=== PATIENT | male | born 1990 | race Hispanic/Latino ===

== ENCOUNTER 2023-08-13 09:49 | Emergency (ER) | payer OTHER, SELFPAY ==
[2023-08-13 09:55] VITALS: BP 135/82; PULSE 88; RESP 14; TEMP 37.1; O2SAT 99; BMI 27.2
[2023-08-13 10:55] LABS: Influenza A - CEPHEID Flu A NEGATIVE (NEGATIVE); Influenza B - CEPHEID Flu B NEGATIVE (NEGATIVE); Respiratory Syncytial Virus Negative (Negative)
[2023-08-13 10:56] LABS: COVID-19 CEPHEID 4-PLEX PCR POSITIVE (Negative)
[2023-08-13 11:42] VITALS: BP 120/79; PULSE 92; RESP 16; TEMP 37.2; O2SAT 97
--- NOTE | 2023-08-13 11:47 | DI.CT.S_ITS ---
PROCEDURE: CT ABDOMEN PELVIS W CON INDICATIONS: LUQ, LLQ pain TECHNIQUE: After the administration of intravenous contrast, axial sections acquired from the lung bases to the pubic symphysis. Coronal and sagittal reformats were performed. For radiation dose reduction, the following was used: automated exposure control, adjustment of mA and/or kV according to patient size. COMPARISON: None. FINDINGS: Image quality: Diagnostic. Lower Chest: No significant findings. ABDOMEN: Liver: No solid mass. Gallbladder: No radiopaque gallstones or wall thickening. Biliary ducts: No biliary dilation. Pancreas: No ductal dilation. Spleen: Size is within normal limits. Adrenal Glands: No adrenal nodules. Kidneys and Ureters: No hydronephrosis. No solid mass. No complex renal cystic lesion which requires follow up. Symmetric enhancement. Stomach and Bowel: Normal colonic caliber, without significant wall thickening. Appendectomy. No significant diverticular disease. Peritoneum: No abnormal intraperitoneal fluid. No free air. Ventral Wall: No hernia. Abdominal Nodes: No retroperitoneal or mesenteric adenopathy by size criteria. Vessels: Aorta and inferior vena cava are normal in size. PELVIS: Pelvic Organs: Unremarkable. Bladder: Unremarkable. Pelvic Nodes: No enlarged lymph nodes. Miscellaneous: No inguinal hernias are seen. Bones: No aggressive osseous abnormality. IMPRESSION: No findings to explain the patient's left-sided pain. No diverticular disease or nephrolithiasis. Dictated by: Robe Busch M.D. on 08/13/2023 at 12:44 Approved by: Robe Busch M.D. on 08/13/2023 at 12:47
[2023-08-13 12:00] LABS: Add Manual Diff / Slide Review NO; Basophils Absolute Auto 0 /uL (0-100); Basophils Percent Auto 0.3 % (0-2); Eosinophils Absolute Auto 0 /uL (0-450); Hematocrit 50.2 % (41-53); Hemoglobin 17.2 g/dL (13.5-17.5); Lymphocytes Absolute Auto 500 /uL (1100-4500); Lymphocytes Percent Auto 3.8 % (25-40); Mean Corpuscular HGB Conc 34.3 % (30-36); Mean Corpuscular Hemoglobin 32.2 PG (26-34); Mean Corpuscular Volume 93.8 fL (80-100); Monocytes Absolute Auto 500 /uL (0-900); Monocytes Percent Auto 3.6 % (3-14); Neutrophils Absolute Auto 12000 /uL (1500-7000); Neutrophils Percent Auto 92.3 % (50-75); Platelet Count 225 X10^3/uL (150-400); Red Blood Cell Count 5.35 X10^6/uL (4.5-5.9); Red Cell Distribution Width 13.4 % (11.6-14.8); White Blood Cell Count 12.9 X10^3/uL (4.5-11.0)
[2023-08-13] MEDS: SODIUM CHLORIDE 0.9% 1,000 ML 1000 ML IV (12:00)
[2023-08-13 12:14] LABS: Alanine Aminotransferase 34 IU/L (<50); Albumin 4.7 g/dL (3.5-5.0); Albumin Globulin Ratio 1.3 (1.0-2.8); Alkaline Phosphatase 60 U/L (38-126); Aspartate Aminotransferase 29 IU/L (17-59); BUN Creatinine Ratio 17.8 (6-22); Bilirubin Total 1.2 mg/dL (0.2-1.3); Blood Urea Nitrogen 16 mg/dL (9-20); Calcium 9.3 mg/dL (8.4-10.2); Carbon Dioxide 27 mmol/L (22-32); Chloride 96 mmol/L (98-107); Estimated Glomerular Filt Rate > 60 mL/min (>60); Globulin 3.6 g/dL (1.7-4.1); Glucose 105 mg/dL (70-100); HEMOLYSIS < 15 (0-50); Lipase 117 U/L (23-300); Potassium 3.5 mmol/L (3.4-5.1); Sodium 135 mmol/L (137-145); Total Protein 8.3 g/dL (6.3-8.2)
[2023-08-13 12:23] LABS: Bacteria Urine Occasional (0-1); RBC Urine None Seen (0-5/HPF); Squamous Epithelial Cell Urine None Seen (0-5/HPF); WBC Urine 0-1/HPF (0-5/HPF)
[2023-08-13 12:24] LABS: Culture Indicated Urine Cult Not Indicated
--- NOTE | 2023-08-13 12:58 | ED.NAVMDI ---
HPI - Nausea/Vomiting/Diarrhea <Akin Monson PA-C - Last Filed: 08/13/23 13:06> General Chief complaint: Nausea/Vomiting/Diarrhea Stated complaint: 8pm vomitting 14/15 times so far/ pain in left sabas Time Seen by Provider: 08/13/23 11:24 Source: patient Mode of arrival: Ambulatory History of Present Illness HPI Narrative: 33-year-old male with no reported past medical history presents to the ED with 2 days of nausea, vomiting, diarrhea. Patient states that he was exposed to several sick contacts, some of whom had a stomach flu. Patient also recently travel back from visiting family in [place]. Patient states that his sister and grandmother in [place] were sick. Patient states that he started feeling sick yesterday, endorses sore throat, chills, myalgias, nausea, vomiting, diarrhea. Patient states that he started vomiting after dinner last night, has vomited 14 or 15 times since then. Patient also states that he has left-sided abdominal pain. Patient states that he started having diarrhea this morning. Denies hematochezia, melena. Patient was seen at the walk-in clinic at [facility], given a dose of Zofran and sent to the ED for further evaluation. In the ED, patient states that his nausea is well controlled the Zofran, however he continues to have abdominal pain. Related Data Previous Rx's Medication Instructions Recorded ondansetron 4 mg disintegrating 4 mg PO Q8H PRN nausea and 08/13/23 tablet vomiting #14 tabs Allergies Allergy/AdvReac Type Severity Reaction Status Date / Time No Known Drug Allergies Allergy Verified 08/13/23 09:55 Review of Systems <Akin Monson PA-C - Last Filed: 08/13/23 13:06> Constitutional Constitutional: Reports body ache(s), Reports chills, Denies fatigue, Denies fever(s), Denies frequent falls, Denies lethargy and Denies weakness Eyes Eyes: Denies change in vision, Denies eye discharge, Denies irritation and Denies loss of vision ENT Ears, Nose, Mouth, and Throat: Denies change in voice, Denies dizziness, Denies neck pain, Reports sore throat and Denies throat swelling Cardiovascular Cardiovascular: Denies chest pain, Denies irregular heart rhythm, Denies lightheadedness, Denies palpitations, Denies dyspnea, Denies dyspnea on exertion and Denies orthopnea Respiratory Respiratory: Denies cough, Denies dyspnea, Denies dyspnea on exertion and Denies wheezing Gastrointestinal Gastrointestinal: Denies abdominal pain, Denies change in bowel habits, Reports diarrhea, Reports nausea and Reports vomiting Musculoskeletal Musculoskeletal: Denies neck pain and Denies numbness Integumentary/Breasts Skin/Breast: Denies pruritus, Denies erythema, Denies rash and Denies wounds Neurologic Neurologic: Denies behavioral changes, Denies confusion, Denies dizziness, Denies frequent falls, Denies loss of vision, Denies numbness and Denies weakness Psychiatric Psychiatric: Denies anxiety, Denies behavioral changes, Denies confusion, Denies depression, Denies homicidal ideation and Denies suicidal ideation Endocrine Endocrine: Denies fatigue, Denies flushing and Denies palpitations Hematologic/Lymphatic Hematologic/Lymphatic: Denies easy bruising Allergic/Immunologic Allergic/Immunologic: Denies urticaria, Denies throat swelling and Denies wheezing Patient History <Akin Monson PA-C - Last Filed: 08/13/23 13:06> Social History Smoking Status: Unknown if ever smoked Smoking Status: Unknown if ever smoked alcohol intake frequency: holidays/special occasions only Substance Use Type: does not use Exam <Akin Monson PA-C - Last Filed: 08/13/23 13:06> Narrative Exam Narrative: Const General:?cooperative, healthy appearing and comfortable [facility] Head:?normal to inspection Ears:?hearing grossly normal bilaterally Nose:?external nose normal Face and sinus:?normal facial exam and sinuses nontender Mouth:?oral mucosae normal Throat:?posterior oropharynx normal Eyes General:?appearance normal, both eyes and all related structures Neck Neck:?normal visual inspection and no lymphadenopathy noted Resp Effort & Inspection:?normal respiratory effort Auscultation:?clear to auscultation bilaterally Cardio Rate:?regular rate Rhythm:?regular rhythm GI Abdomen is soft, nondistended. There is tenderness to palpation of the left upper quadrant and left lower quadrant. There is no CVA tenderness. Neuro General:?patient alert, patient awake and patient oriented x3 Initial Vital Signs Initial Vital Signs: Vital Signs Temperature 98.7 F 08/13/23 09:55 Pulse Rate 88 08/13/23 09:55 Respiratory Rate 14 08/13/23 09:55 Blood Pressure 135/82 08/13/23 09:55 Pulse Oximetry 99 08/13/23 09:55 Oxygen Delivery Method Room Air 08/13/23 09:55 <Selvin Dailey MD - Last Filed: 08/13/23 18:39> Initial Vital Signs Initial Vital Signs: Vital Signs Temperature 98.7 F 08/13/23 09:55 Pulse Rate 88 08/13/23 09:55 Respiratory Rate 14 08/13/23 09:55 Blood Pressure 135/82 08/13/23 09:55 Pulse Oximetry 99 08/13/23 09:55 Oxygen Delivery Method Room Air 08/13/23 09:55 Course <Akin Monson PA-C - Last Filed: 08/13/23 13:06> Orders Ordered: ED Orders 08/13/23 10:03 Covid-19 + FLU A/B + RSV - PCR Stat 08/13/23 11:40 Complete Blood Count AUTO DIFF Stat Comprehensive Metabolic Panel Stat Lipase Stat 08/13/23 11:47 CT abdomen pelvis w con Stat 08/13/23 12:07 Urine Microscopic Stat Discontinued Medications Sodium Chloride (Normal Saline 0.9%) 1,000 mls @ 1,000 mls/hr IV BOLUS ONE Stop: 08/13/23 12:48 Last Infusion: 08/13/23 13:05 Dose: Infused Documented By: Admin: 08/13/23 12:00 Dose: 1,000 mls/hr Documented By: MAEGAN Ondansetron HCl (Ondansetron 4 Mg/2 Ml Inj) 4 mg IV NOW PRN PRN Reason: Nausea And Vomiting Vital Signs Vital signs: Vital Signs - 8 hr 08/13/23 11:42 Temperature 99.0 F Pulse Rate 92 H Respiratory Rate 16 Blood Pressure 120/79 Pulse Oximetry 97 Oxygen Delivery Method Room Air <Selvin Dailey MD - Last Filed: 08/13/23 18:39> Orders Ordered: ED Orders 08/13/23 10:03 Covid-19 + FLU A/B + RSV - PCR Stat 08/13/23 11:40 Complete Blood Count AUTO DIFF Stat Comprehensive Metabolic Panel Stat Lipase Stat 08/13/23 11:47 CT abdomen pelvis w con Stat 08/13/23 12:07 Urine Microscopic Stat Discontinued Medications Sodium Chloride (Normal Saline 0.9%) 1,000 mls @ 1,000 mls/hr IV BOLUS ONE Stop: 08/13/23 12:48 Last Infusion: 08/13/23 13:05 Dose: Infused Documented By: Admin: 08/13/23 12:00 Dose: 1,000 mls/hr Documented By: MAEGAN Ondansetron HCl (Ondansetron 4 Mg/2 Ml Inj) 4 mg IV NOW PRN PRN Reason: Nausea And Vomiting Vital Signs Vital signs: Vital Signs - 8 hr 08/13/23 11:42 Temperature 99.0 F Pulse Rate 92 H Respiratory Rate 16 Blood Pressure 120/79 Pulse Oximetry 97 Oxygen Delivery Method Room Air MDM - Nausea/Vomiting/Diarrhea <Akin Monson PA-C - Last Filed: 08/13/23 13:06> Lab Data 08/13/23 11:40 08/13/23 11:40 Labs: Lab Results 08/13/23 08/13/23 08/13/23 Range/Units 10:03 11:40 12:07 WBC 12.9 H (4.5-11.0) X10^3/uL RBC 5.35 (4.5-5.9) X10^6/uL Hgb 17.2 (13.5-17.5) g/dL Hct 50.2 (41-53) % MCV 93.8 (80-100) fL MCH 32.2 (26-34) PG MCHC 34.3 (30-36) % RDW 13.4 (11.6-14.8) % Plt Count 225 (150-400) X10^3/uL Neut % (Auto) 92.3 H (50-75) % Lymph % (Auto) 3.8 L (25-40) % [place] % (Auto) 3.6 (3-14) % Eos % (Auto) 0.0 L (2-4) % Baso % (Auto) 0.3 (0-2) % Neut # (Auto) 73789 H (7210-9092) /uL Lymph # (Auto) 500 L (2781-7478) /uL [place] # (Auto) 500 (0-900) /uL Eos # (Auto) 0 (0-450) /uL Baso # (Auto) 0 (0-100) /uL Sodium 135 L (137-145) mmol/L Potassium 3.5 (3.4-5.1) mmol/L Chloride 96 L (98-107) mmol/L Carbon Dioxide 27 (22-32) mmol/L BUN 16 (9-20) mg/dL Creatinine 0.90 (0.66-1.25) mg/dL Estimated GFR > 60 (>60) mL/min BUN/Creatinine Ratio 17.8 (6-22) Glucose 105 H (70-100) mg/dL Calcium 9.3 (8.4-10.2) mg/dL Total Bilirubin 1.2 (0.2-1.3) mg/dL AST 29 (17-59) IU/L ALT 34 (<50) IU/L Alkaline Phosphatase 60 (38-126) U/L Total Protein 8.3 H (6.3-8.2) g/dL Albumin 4.7 (3.5-5.0) g/dL Globulin 3.6 (1.7-4.1) g/dL Albumin/Globulin Ratio 1.3 (1.0-2.8) Lipase 117 (23-300) U/L Urine RBC None seen (0-5/HPF) Urine WBC 0-1/hpf (0-5/HPF) Ur Squamous Epith Cells None seen (0-5/HPF) Urine Bacteria Occasional (0-1) (None) Ur Culture Indicated? Cult not indicated SARS-CoV-2 (PCR) Positive H (Negative) Influenza A (RT-PCR) Flu a negative (NEGATIVE) Influenza B (RT-PCR) Flu b negative (NEGATIVE) RSV (PCR) Negative (Negative) Urine Dip Bedside Urine Glucose Negative Bedside Urine Bilirubin + 1 Bedside Urine Ketone ++ 40 Urine Specific [place] 1.020 Bedside Urine Occult Blood - Negative Bedside Urine pH 6.0 Bedside Urine Protein - Negative Bedside Urine Urobilinogen - Negative Bedside Urine Nitrite - Negative Bedside Urine Leukocytes - Negative Esterase MDM Narrative Medical decision making narrative: 33-year-old male with no reported past medical history presents to the ED with 2 days of nausea, vomiting, diarrhea. Concern for viral URI versus gastroenteritis versus diverticulitis versus UTI versus dehydration versus electrolyte abnormalities versus other intra-abdominal pathology versus other. Will obtain labs, UA, CT abdomen pelvis, respiratory panel. Will give IV fluids. Will reassess. Patient tested positive for COVID-19. WBC slightly elevated at 12.9. All other labs within normal limits. UA negative for infection. CT abdomen pelvis without acute findings. Patient's symptoms significantly improved with the Zofran and IV fluids. Patient states is abdominal pain is resolved. Patient is no longer vomiting. Discussed findings of COVID-19 and possible gastroenteritis with patient. Recommend brat diet, adequate hydration. Prescribed Zofran for nausea as needed. ED return precautions discussed with patient. Patient verbalized understanding. Medical records reviewed: Yes <Selvin Dailey MD - Last Filed: 08/13/23 18:39> Lab Data Labs: Lab Results 08/13/23 08/13/23 08/13/23 Range/Units 10:03 11:40 12:07 WBC 12.9 H (4.5-11.0) X10^3/uL RBC 5.35 (4.5-5.9) X10^6/uL Hgb 17.2 (13.5-17.5) g/dL Hct 50.2 (41-53) % MCV 93.8 (80-100) fL MCH 32.2 (26-34) PG MCHC 34.3 (30-36) % RDW 13.4 (11.6-14.8) % Plt Count 225 (150-400) X10^3/uL Neut % (Auto) 92.3 H (50-75) % Lymph % (Auto) 3.8 L (25-40) % [place] % (Auto) 3.6 (3-14) % Eos % (Auto) 0.0 L (2-4) % Baso % (Auto) 0.3 (0-2) % Neut # (Auto) 40219 H (9427-6733) /uL Lymph # (Auto) 500 L (4469-1392) /uL [place] # (Auto) 500 (0-900) /uL Eos # (Auto) 0 (0-450) /uL Baso # (Auto) 0 (0-100) /uL Sodium 135 L (137-145) mmol/L Potassium 3.5 (3.4-5.1) mmol/L Chloride 96 L (98-107) mmol/L Carbon Dioxide 27 (22-32) mmol/L BUN 16 (9-20) mg/dL Creatinine 0.90 (0.66-1.25) mg/dL Estimated GFR > 60 (>60) mL/min BUN/Creatinine Ratio 17.8 (6-22) Glucose 105 H (70-100) mg/dL Calcium 9.3 (8.4-10.2) mg/dL Total Bilirubin 1.2 (0.2-1.3) mg/dL AST 29 (17-59) IU/L ALT 34 (<50) IU/L Alkaline Phosphatase 60 (38-126) U/L Total Protein 8.3 H (6.3-8.2) g/dL Albumin 4.7 (3.5-5.0) g/dL Globulin 3.6 (1.7-4.1) g/dL Albumin/Globulin Ratio 1.3 (1.0-2.8) Lipase 117 (23-300) U/L Urine RBC None seen (0-5/HPF) Urine WBC 0-1/hpf (0-5/HPF) Ur Squamous Epith Cells None seen (0-5/HPF) Urine Bacteria Occasional (0-1) (None) Ur Culture Indicated? Cult not indicated SARS-CoV-2 (PCR) Positive H (Negative) Influenza A (RT-PCR) Flu a negative (NEGATIVE) Influenza B (RT-PCR) Flu b negative (NEGATIVE) RSV (PCR) Negative (Negative) Urine Dip Bedside Urine Glucose Negative Bedside Urine Bilirubin + 1 Bedside Urine Ketone ++ 40 Urine Specific [place] 1.020 Bedside Urine Occult Blood - Negative Bedside Urine pH 6.0 Bedside Urine Protein - Negative Bedside Urine Urobilinogen - Negative Bedside Urine Nitrite - Negative Bedside Urine Leukocytes - Negative Esterase MDM Narrative Medical decision making narrative: 33-year-old male with no reported past medical history presents to the ED with 2 days of nausea, vomiting, diarrhea. Concern for viral URI versus gastroenteritis versus diverticulitis versus UTI versus dehydration versus electrolyte abnormalities versus other intra-abdominal pathology versus other. Will obtain labs, UA, CT abdomen pelvis, respiratory panel. Will give IV fluids. Will reassess. Patient tested positive for COVID-19. WBC slightly elevated at 12.9. All other labs within normal limits. UA negative for infection. CT abdomen pelvis without acute findings. Patient's symptoms significantly improved with the Zofran and IV fluids. Patient states is abdominal pain is resolved. Patient is no longer vomiting. Discussed findings of COVID-19 and possible gastroenteritis with patient. Recommend brat diet, adequate hydration. Prescribed Zofran for nausea as needed. ED return precautions discussed with patient. Patient verbalized understanding. Medical records reviewed: Yes I was immediately available in the department for consultation. Documentation has been reviewed. I agree with assessment and plan. Discharge Plan Departure Patient Disposition: Home Clinical Impression: Gastroenteritis, COVID-19 Instructions: DI for Viral Gastroenteritis -- Adult, COVID-19 Activity Restrictions/Additional Instructions: You were evaluated in the ED today for nausea, vomiting, diarrhea. You tested positive for COVID-19 infection in the ED. also appears that you might have a stomach flu or food poisoning/gastroenteritis that might be causing the acute vomiting and diarrhea. Your symptoms improved with Zofran and IV fluids. You are being prescribed Zofran to take at home as needed for nausea. You may continue to have diarrhea for the next several days but it is important to stay well hydrated. A BRAT diet consisting of bananas, rice, apples and toast is recommended to help stop the diarrhea. Please follow-up with your PCP as soon as possible. Return to the ED if you have worsening symptoms, you are persistently vomiting, unable to keep down fluids. Prescriptions: New ondansetron 4 mg tablet,disintegrating 4 mg PO Q8H PRN (Reason: nausea and vomiting) Qty: 14 0RF Stand Alone Forms: Patient Portal/API
== END 2023-08-13 13:08 | disposition home or self-care (01) ==
PROVIDERS: Emergency Medicine; Emergency Provider Student in an Organized Health Care Education/Training Program
DX: U07.1 COVID-19 (principal); K52.9 Noninfective gastroenteritis and colitis, unspecified; R10.9 Unspecified abdominal pain
CPT/HCPCS: 0241U; 36415; 74177; 80053; 81003; 81015; 83690; 85025; 96360; 99284; Q9967